=== PATIENT | female | born 1955 | race Caucasian/White ===

== ENCOUNTER 2022-02-20 19:43 | Emergency (ER) | payer OTHER ==
[~2022-02-20] VITALS: Ht 170.2 cm; Wt 100.0 kg
[2022-02-20 19:54] VITALS: BP 133/71
[2022-02-20] MEDS ORDERED: BO1 TP (20:28)
[2022-02-20] MEDS ORDERED: SULF1TAB48 MT (20:28)
== END 2022-02-20 20:45 | disposition home or self-care (01) ==
LOC: ER 19:43
DX: S00.31XA Abrasion of nose, initial encounter (principal); L03.115 Cellulitis of right lower limb; Z90.49 Acquired absence of other specified parts of digestive tract; Z98.890 Other specified postprocedural states; Z88.1 Allergy status to other antibiotic agents; W01.0XXA Fall on same level from slipping, tripping and stumbling without subsequent striking against object, initial encounter; Y93.89 Activity, other specified; Y92.59 Other trade areas as the place of occurrence of the external cause
CPT/HCPCS: 99283